=== PATIENT | female | born 1995 | race Caucasian/White ===

== ENCOUNTER 2025-04-18 22:16 | Emergency (ER) | payer MEDICAID ==
[~2025-04-18] VITALS: Ht 165.1 cm; Wt 74.9 kg
[~2025-04-18 22:16] MED LIST: ESCI-8 PO; HYDR-3686 PO; PRAZ5CAP2 PO; TRAZ-251 PO
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
[2025-04-19] MEDS: proCHLORperazine 10 MG/2 ml inj IV ONE (01:28)
[2025-04-19] MEDS: ketorolac trometh 15mg/ml vial 15 MG/ML ML IV ONE (01:29)
[2025-04-19] MEDS: ringers solution, lacted 1,000 ML IV ONE (01:32)
[2025-04-19] MEDS: SUMAtriptan succ. 6 MG/0.5ml vial SQ ONE (01:33)
[2025-04-19 02:16] VITALS: BP 107/68; PULSE 87; RESP 16; TEMP 97.7; O2SAT 98
== END 2025-04-19 02:18 | disposition home or self-care (01) ==
LOC: ER 22:17
DX: R51.9 Headache, unspecified (principal); T67.5XXA Heat exhaustion, unspecified, initial encounter; F17.200 Nicotine dependence, unspecified, uncomplicated; F32.A Depression, unspecified; F14.90 Cocaine use, unspecified, uncomplicated; Z88.8 Allergy status to other drugs, medicaments and biological substances; Z79.899 Other long term (current) drug therapy; Z72.89 Other problems related to lifestyle; X58.XXXA Exposure to other specified factors, initial encounter; Y93.89 Activity, other specified; Y92.89 Other specified places as the place of occurrence of the external cause; Y99.8 Other external cause status
CPT/HCPCS: 96372; 96374; 96375; 99284; J0780; J1885; J3030; J7030; J7120